=== PATIENT | male | born 1975 | race Caucasian/White ===

== ENCOUNTER 2018-03-31 12:41 | Emergency (ER) | payer SELFPAY ==
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
--- NOTE | 2018-03-31 14:18 | RAD REPORT ---
EXAM DESCRIPTION: RAD - Shoulder Left 2 View - 03/31/2018 2:06 pm CLINICAL HISTORY: Left shoulder pain FINDINGS: No fracture or dislocation is seen.
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
[2018-03-31 17:10] VITALS: TEMP 98.7
[2018-03-31 17:12] VITALS: BP 164/109; O2SAT 100
== END 2018-03-31 14:36 | disposition home or self-care (01) ==
LOC: ER 12:41
DX: S16.1XXA Strain of muscle, fascia and tendon at neck level, initial encounter (principal); S29.012A Strain of muscle and tendon of back wall of thorax, initial encounter; V49.50XA Passenger injured in collision with unspecified motor vehicles in traffic accident, initial encounter; F17.210 Nicotine dependence, cigarettes, uncomplicated
CPT/HCPCS: 72040; 72070; 99284

== ENCOUNTER 2018-07-01 08:05 | Emergency (ER) | payer SELFPAY ==
[2018-07-01 08:55] LABS: Protime INR 1.02
[2018-07-01 09:02] LABS: Absolute Lymphocytes (CBC) 1.3 K/uL (0.7-4.9); Absolute Monocytes 0.7 K/uL (0.1-1.3); Absolute Neutrophil 6.2 K/uL (1.8-8.0); Basophils % 0.7 % (0-1.3); Eosinophils % 0.9 % (0-4.4); Hematocrit 53.9 % (39.6-49.0); Lymphocytes % 15.7 % (15.3-44.8); MPV 9.6 fL (7.6-11.3); Monocytes % 8.1 % (3.3-12.3); RBC Red Blood Cell Count 5.96 M/uL (4.33-5.43)
[2018-07-01] MEDS ORDERED: KETOROLAC 30 MG/ML INJ ONE (09:06)
--- NOTE | 2018-07-01 09:09 | RAD REPORT ---
EXAM DESCRIPTION: Carl Single View07/01/2018 8:59 am CLINICAL HISTORY: Chest pain COMPARISON: 2014 FINDINGS: The lungs are hyperaerated. The lungs appear clear of acute infiltrate. The heart is trung l size IMPRESSION: No acute abnormalities displayed
[2018-07-01 09:10] LABS: ALT/SGPT 21 U/L (12-78); AST/SGOT 18 U/L (15-37); Albumin 3.7 g/dL (3.4-5.0); Alkaline Phosphatase 68 U/L (45-117); BUN Blood Urea Nitrogen 13 mg/dL (7-18); Bicarbonate 25 mmol/L (21-32); Bilirubin Direct 0.2 mg/dL (0-0.2); Bilirubin Total 0.7 mg/dL (0.2-1.0); Glucose Level 100 mg/dL (74-106); Magnesium 1.9 mg/dL (1.8-2.4); NT PRO-BNP 60 pg/mL (<125); Protein, Total 7.4 g/dL (6.4-8.2); Sodium Level 140 mmol/L (136-145); Troponin (Emerg Dept Use Only) < 0.02 ng/mL (0.0-0.045)
--- NOTE | 2018-07-01 10:42 | EKG ---
Test Date: 2018-07-01 Test Time: 08:21:52 Friction Saw Operator: SHARAN MEASUREMENT RESULTS: Intervals: Rate: 59 MA: 124 QRSD: 94 QT: 388 QTc: 384 Layton: P: 49 MA: 124 QRS: 78 T: 77 INTERPRETIVE STATEMENTS: Sinus bradycardia Otherwise normal ECG Compared to ECG 10/04/2014 07:36:08 Sinus rhythm no longer present Sinus arrhythmia no longer present Electronically Signed On 07-01-18 10:41:30 CDT by Mo Fine
[2018-07-01] MEDS ORDERED: HYDROCODONE/APAP 7.5/325 MG TAB ONE (11:57)
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
--- NOTE | 2018-07-01 13:04 | EDPHYS ---
Physician Documentation [facility] Name: Wilver Barton Age: 43 yrs Sex: Male : 1975 Arrival Date: 07/01/2018 Time: 08:06 Bed 6 Private MD: None, None ED Physician Tigre Russ HPI: 07/01 09:21 This 43 yrs old Male presents to ER via Ambulatory with complaints of Chest kdr Pain, Breathing Difficulty. 09:21 The patient or guardian reports chest pain that is located primarily in the anterior kdr chest wall, left, chest diffusely. Onset: suddenly, 2 day(s) ago. The pain does not radiate. Associated signs and symptoms: Pertinent positives: nausea, shortness of breath, Pertinent negatives: abdominal pain, cough, diaphoresis, dizziness, headache, lower extremity pain, lower extremity swelling, lightheadedness, near syncope, palpitations, recent travel, syncope, vomiting. The chest pain is described as aching, a pressure, sharp. Duration: The patient or guardian reports multiple episodes, that are intermittent, that wax and wane, with no pattern. Modifying factors: The symptoms are alleviated by nothing. the symptoms are aggravated by breathing, cough, deep breath, movement, palpation of area. Severity of pain: At its worst the pain was mild just prior to arrival, in the emergency department the pain is unchanged. The patient has experienced similar episodes in the past, Yearly for the past six to eight years it has been frequent. The patient has not recently seen a physician. Historical: - Allergies: 08:36 PENICILLINS; hb - Home Meds: 08:36 "i dont take medicine for it" [Active]; hb - PMHx: 08:36 heart problem; Hypertension; hb - PSHx: 08:36 ear surgery; hb - Immunization history:: Adult Immunizations up to date. - Social history:: Smoking status: Patient/guardian denies using tobacco. - Ebola Screening: : No symptoms or risks identified at this time. ROS: 09:21 Constitutional: Negative for fever, chills, and weight loss, Eyes: Negative for injury, kdr pain, redness, and discharge, ENT: Negative for injury, pain, and discharge, Neck: Negative for injury, pain, and swelling, Respiratory: Negative for shortness of breath, cough, wheezing, and pleuritic chest pain, Abdomen/GI: Negative for abdominal pain, nausea, vomiting, diarrhea, and constipation, Back: Negative for injury and pain, : Negative for injury, bleeding, discharge, and swelling, MS/Extremity: Negative for injury and deformity, Skin: Negative for injury, rash, and discoloration, Neuro: Negative for headache, weakness, numbness, tingling, and seizure activity. Psych: Negative for depression, anxiety, suicide ideation, homicidal ideation, and hallucinations, Allergy/Immunology: Negative for hives, rash, and allergies, Endocrine: Negative for neck swelling, polydipsia, polyuria, polyphagia, and marked weight changes, Hematologic/Lymphatic: Negative for swollen nodes, abnormal bleeding, and unusual bruising. 09:21 Cardiovascular: Positive for chest pain, with cough, with movement, Negative for edema, orthopnea, palpitations, paroxysmal nocturnal dyspnea. Exam: 09:21 Constitutional: This is a well developed, well nourished patient who is awake, alert, kdr and in no acute distress. Head/Face: Normocephalic, atraumatic. Eyes: Pupils equal round and reactive to light, extra-ocular motions intact. Lids and lashes normal. Conjunctiva and sclera are non-icteric and not injected. Cornea within normal limits. Periorbital areas with no swelling, redness, or edema. Neck: Trachea midline, no thyromegaly or masses palpated, and no cervical lymphadenopathy. Supple, full range of motion without nuchal rigidity, or vertebral point tenderness. No Meningismus. Chest/axilla: Normal chest wall appearance and motion. Nontender with no deformity. No lesions are appreciated. Cardiovascular: Regular rate and rhythm with a normal S1 and S2. No gallops, murmurs, or rubs. Normal PMI, no JVD. No pulse deficits. Respiratory: Lungs have equal breath sounds bilaterally, clear to auscultation and percussion. No rales, rhonchi or wheezes noted. No increased work of breathing, no retractions or nasal flaring. Abdomen/GI: Soft, non-tender, with normal bowel sounds. No distension or tympany. No guarding or rebound. No evidence of tenderness throughout. Back: No spinal tenderness. No costovertebral tenderness. Full range of motion. Skin: Warm, dry with normal turgor. Normal color with no rashes, no lesions, and no evidence of cellulitis. MS/ Extremity: Pulses equal, no cyanosis. Neurovascular intact. Full, normal range of motion. Neuro: Awake and alert, GCS 15, oriented to person, place, time, and situation. Cranial nerves II-XII grossly intact. Motor strength 5/5 in all extremities. Sensory grossly intact. Cerebellar exam normal. Normal gait. Psych: Awake, alert, with orientation to person, place and time. Behavior, mood, and affect are within normal limits. Vital Signs: 08:30 BP 149 / 101; Pulse 66; Resp 15; Temp 98.2; Pulse Ox 100% on R/A; Pain 7/10; hb 09:30 BP 148 / 105; Pulse 55; Resp 15; Pulse Ox 99% on R/A; Pain 3/10; hb 10:30 BP 142 / 88; Pulse 56; Resp 15; Pulse Ox 100% on R/A; hb 11:30 BP 136 / 86; Pulse 58; Resp 16; Pulse Ox 99% ; hb 12:30 BP 140 / 80; Pulse 55; Resp 15; Pulse Ox 98% on R/A; hb 13:30 BP 146 / 84; Pulse 57; Resp 15; Pulse Ox 99% on R/A; hb MDM: 09:21 Data reviewed: vital signs, nurses notes, lab test result(s), radiologic studies. kdr Counseling: I had a detailed discussion with the patient and/or guardian regarding: the historical points, exam findings, and any diagnostic results supporting the discharge/admit diagnosis, lab results, radiology results. 11:22 ED course: The patient was feeling better and refused and further pain medication or kdr intervention. Explained that we would get second troponin.. 13:02 Patient medically screened. kdr 07/01 08:21 Order name: Basic Metabolic Panel; Complete Time: : kdr 07/01 08:21 Order name: CBC with Diff; Complete Time: kdr 07/01 08:21 Order name: LFT's; Complete Time: : kdr 07/01 08:21 Order name: Magnesium; Complete Time: : kdr 07/01 08:21 Order name: NT PRO-BNP; Complete Time: : kdr 07/01 08:21 Order name: PT-INR; Complete Time: : kdr 07/01 08:21 Order name: Troponin (emerg Dept Use Only); Complete Time: 09:26 kdr 07/01 08:21 Order name: XRAY Chest (1 view); Complete Time: 09: kdr 07/01 08:21 Order name: EKG; Complete Time: 08:22 kdr 07/01 08:21 Order name: ETOH Level; Complete Time: 09: kdr 07/01 10:29 Order name: Troponin (emerg Dept Use Only); Complete Time: 12:14 kdr 07/01 08:21 Order name: Cardiac monitoring; Complete Time: 08:43 kdr 07/01 08:21 Order name: EKG - Nurse/Tech; Complete Time: 08:43 kdr 07/01 08:21 Order name: IV Saline Lock; Complete Time: : kdr 07/01 08:21 Order name: Labs collected and sent; Complete Time: 08: kdr 07/01 08:21 Order name: O2 Per Protocol; Complete Time: 08: kdr 07/01 08:21 Order name: O2 Sat Monitoring; Complete Time: 08:43 kdr Administered Medications: 09:01 Drug: TORadol - Ketorolac 15 mg Route: IVP; Site: right antecubital; hb 09:55 Follow up: Response: No adverse reaction; Pain is decreased hb 11:56 Drug: [place] (7.5 mg-325 mg) 1 tabs Route: PO; hb Disposition: 07/01/18 13:02 Discharged to Home. Impression: Chest pain, unspecified, Chest pain on breathing. - Condition is Stable. - Discharge Instructions: Chest Wall Pain, Tegt-[id number], Nonspecific Chest Pain, [id number]-[id number]. - Prescriptions for Ibuprofen 600 mg Oral Tablet - take 1 tablet by ORAL route every 6 hours As needed take with food; 30 tablet. Tylenol- Codeine #3 300-30 mg Oral Tablet - take 2 tablets by ORAL route every 6 hours As needed; 12 tablet. Tramadol 50 mg Oral Tablet - take 1 tablet by ORAL route every 8 hours as needed; 12 tablet. - Medication Reconciliation Form, Thank You Letter, Prescription Opioid Use, Work release form form. - Follow up: Private Physician; When: 2 - 3 days; Reason: If symptoms return, Further diagnostic work-up, Recheck today's complaints, Continuance of care, Re-evaluation by your physician. - Problem is an acute exacerbation. - Symptoms have improved. Signatures: Dispatcher [employer] EDMS Tigre Russ MD MD kdr Amy Hemphill RN RN hb Corrections: (The following items were deleted from the chart) 13:45 13:02 07/01/2018 13:02 Discharged to Home. Impression: Chest pain, unspecified; Chest hb pain on breathing. Condition is Stable. Forms are Medication Reconciliation Form, Thank You Letter, Antibiotic Education, Prescription Opioid Use. Follow up: Private Physician; When: 2 - 3 days; Reason: If symptoms return, Further diagnostic work-up, Recheck today's complaints, Continuance of care, Re-evaluation by your physician. Problem is an acute exacerbation. Symptoms have improved. kdr
[2018-07-01 13:49] VITALS: TEMP 98.2
[2018-07-01 13:55] VITALS: BP 146/84; O2SAT 99
== END 2018-07-01 13:45 | disposition home or self-care (01) ==
LOC: ER 08:05
DX: R07.9 Chest pain, unspecified (principal); R07.1 Chest pain on breathing; I10 Essential (primary) hypertension; Z88.0 Allergy status to penicillin
CPT/HCPCS: 36415; 71045; 80048; 80076; 80320; 83735; 83880; 84484; 85025; 85610; 93005; 96374; 99285

== ENCOUNTER 2021-10-28 22:20 | Emergency (ER) | payer SELFPAY ==
[2021-10-28] MEDS ORDERED: MORPHINE 4 MG/ML SYR ONE (23:18)
[2021-10-28] MEDS ORDERED: ONDANSETRON 4 MG/2 ML VIAL ONE (23:18)
[2021-10-28] MEDS ORDERED: NA CHLORIDE 0.9% 1,000 ML ONE (23:18)
[2021-10-28 23:24] LABS: Urine Blood Negative (Negative); Urine Glucose Negative (Negative); Urine Protein Negative (Negative)
[2021-10-28 23:24] LABS: Absolute Lymphocytes (CBC) 2.5 K/uL (0.7-4.9); Hematocrit 44.2 % (39.6-49.0); Lymphocytes % 37.3 % (15.3-44.8); MCV 88.9 fL (80-100); RBC Red Blood Cell Count 4.98 M/uL (4.33-5.43)
[2021-10-28 23:35] LABS: Albumin 3.4 g/dL (3.4-5.0); Bilirubin Total 0.3 mg/dL (0.2-1.0); Potassium 3.7 mmol/L (3.5-5.1); Protein, Total 7.3 g/dL (6.4-8.2)
--- NOTE | 2021-10-29 03:00 | EDPHYS ---
Physician Documentation [facility] Name: Wilver Barton Age: 46 yrs Sex: Male : 1975 Arrival Date: 10/28/2021 Time: 22:24 Bed 7 Private MD: ED Physician Brad Moreno HPI: 10/28 23:15 This 46 yrs old Male presents to ER via Ambulatory with complaints of Flank Pain. mh7 23:15 The patient complains of pain in the right flank. The pain does not radiate. Onset: The mh7 symptoms/episode began/occurred 10 day(s) ago. Modifying factors: The symptoms are alleviated by nothing. the symptoms are aggravated by movement, palpation/percussion. Associated signs and symptoms: Pertinent negatives: diarrhea, dizziness, dysuria, fever, urinary frequency, headache, hematuria, nausea, pain radiating to the lower extremities, vomiting. Severity of pain: At its worst the pain was moderate 3 day(s) ago, in the emergency department the pain is unchanged. Historical: - Allergies: 22:41 PENICILLINS; bb - Home Meds: 22:41 None [Active]; bb - PMHx: 22:41 Polycystic Kidney Disease; heart problem; Hypertension; bb - PSHx: 22:41 cyst removal from ear; bb - Immunization history:: Client reports having NOT received the Covid vaccine. - Social history:: Smoking status: Patient reports the use of cigarette tobacco products. ROS: 23:15 Constitutional: Negative for fever, chills, and weight loss, Eyes: Negative for injury, mh7 pain, redness, and discharge, ENT: Negative for injury, pain, and discharge, Neck: Negative for injury, pain, and swelling, Cardiovascular: Negative for chest pain, palpitations, and edema, Respiratory: Negative for shortness of breath, cough, wheezing, and pleuritic chest pain, Abdomen/GI: Negative for abdominal pain, nausea, vomiting, diarrhea, and constipation, : Negative for injury, bleeding, discharge, and swelling, MS/Extremity: Negative for injury and deformity, Skin: Negative for injury, rash, and discoloration, Neuro: Negative for headache, weakness, numbness, tingling, and seizure, Psych: Negative for depression, anxiety, suicide ideation, homicidal ideation, and hallucinations, Allergy/Immunology: Negative for hives, rash, and allergies, Endocrine: Negative for neck swelling, polydipsia, polyuria, polyphagia, and marked weight changes, Hematologic/Lymphatic: Negative for swollen nodes, abnormal bleeding, and unusual bruising. Exam: 23:15 Head/Face: Normocephalic, atraumatic. Eyes: Pupils equal round and reactive to light, mh7 extra-ocular motions intact. Lids and lashes normal. Conjunctiva and sclera are non-icteric and not injected. Cornea within normal limits. Periorbital areas with no swelling, redness, or edema. Neck: Trachea midline, no thyromegaly or masses palpated, and no cervical lymphadenopathy. Supple, full range of motion without nuchal rigidity, or vertebral point tenderness. No Meningismus. Chest/axilla: Normal chest wall appearance and motion. Nontender with no deformity. No lesions are appreciated. Cardiovascular: Regular rate and rhythm with a normal S1 and S2. No gallops, murmurs, or rubs. Normal PMI, no JVD. No pulse deficits. Respiratory: Lungs have equal breath sounds bilaterally, clear to auscultation and percussion. No rales, rhonchi or wheezes noted. No increased work of breathing, no retractions or nasal flaring. 23:15 Skin: Warm, dry with normal turgor. Normal color with no rashes, no lesions, and no evidence of cellulitis. MS/ Extremity: Pulses equal, no cyanosis. Neurovascular intact. Full, normal range of motion. Neuro: Awake and alert, GCS 15, oriented to person, place, time, and situation. Cranial nerves II-XII grossly intact. Motor strength 5/5 in all extremities. Sensory grossly intact. Cerebellar exam normal. Normal gait. Psych: Awake, alert, with orientation to person, place and time. Behavior, mood, and affect are within normal limits. 23:15 Constitutional: The patient appears in no acute distress, alert, awake, uncomfortable. 23:15 Back: normal spinal alignment noted, CVA tenderness, that is moderate, is noted on the right, vertebral tenderness, is not appreciated, muscle spasm, is not present. 23:15 Abdomen/GI: Soft, non-tender, with normal bowel sounds. No distension or tympany. No mh7 guarding or rebound. No evidence of tenderness throughout. Vital Signs: 22:39 BP 140 / 91; Pulse 57; Resp 16 S; Temp 98.4(TE); Pulse Ox 97% on R/A; Weight 70.31 kg bb (R); Height 6 ft. 0 in. (182.88 cm) (R); Pain 10/10; 10/29 00:24 BP 133 / 88; Pulse 44; Resp 18; Pulse Ox 97% on R/A; ll3 01:41 BP 119 / 86; Pulse 44; Resp 17; Pulse Ox 97% on R/A; ll3 03:04 BP 115 / 85; Pulse 85; Resp 20; Pulse Ox 97% on R/A; kl 10/28 22:39 Body Mass Index 21.02 (70.31 kg, 182.88 cm) bb MDM: 02:56 Differential diagnosis: nephrolithiasis, pyelonephritis, UTI, diverticulitis. Data [facility] reviewed: vital signs, nurses notes, old medical records, lab test result(s), CBC, electrolytes, urinalysis, radiologic studies, CT scan. Data interpreted: Pulse oximetry: on room air is 97 %. Interpretation: normal. Counseling: I had a detailed discussion with the patient and/or guardian regarding: the historical points, exam findings, and any diagnostic results supporting the discharge/admit diagnosis, lab results, radiology results, the need for outpatient follow up, a urologist, to return to the emergency department if symptoms worsen or persist or if there are any questions or concerns that arise at home. Response to treatment: the patient's symptoms have resolved after treatment, the patient's blood pressure is in an acceptable range, mental status has returned to baseline, the patient no longer shows bradycardia, the patient is not short of breath, the patient is not tachycardic, the patient's pain is gone, the patient's temperature has normalized, the patient is now symptom free, patient is well hydrated. 02:59 Patient medically screened. [facility] 10/28 23:17 Order name: Comprehensive Metabolic Panel; Complete Time: 23:46 EDNY 10/28 23:17 Order name: Lipase; Complete Time: 23:46 [facility] 10/28 23:17 Order name: CBC with Automated Diff; Complete Time: 23:35 [facility]NY 10/28 23:03 Order name: IV Saline Lock; Complete Time: 23:11 [facility] 10/28 23:03 Order name: Labs collected and sent; Complete Time: 23:11 [facility] 10/28 23:03 Order name: Urine Dipstick-Ancillary (obtain specimen); Complete Time: 23:58 [facility] 10/28 23:24 Order name: CT Stone Protocol [facility] 10/28 23:24 Order name: Urine Dipstick-Ancillary; Complete Time: 23:24 EDMS Administered Medications: 10/28 23:14 Drug: Zofran (Ondansetron) 4 mg Route: IVP; Site: right antecubital; 10/29 02:08 Follow up: Response: No adverse reaction [facility] 10/28 23:14 Drug: morphine 4 mg Route: IVP; Infused Over: 4 mins; Site: right antecubital; 10/29 02:05 Follow up: Response: No adverse reaction [facility] 10/28 23:33 Drug: NS 0.9% 1000 ml Route: IV; Rate: 1 bolus; Site: right antecubital; [facility] 10/29 02:05 Follow up: Response: No adverse reaction; IV Status: Completed infusion; IV Intake: ll3 1000ml Disposition Summary: 10/29/21 02:59 Discharge Ordered Location: Home [facility] Problem: new [facility] Symptoms: have improved [facility] Condition: Stable [facility] Diagnosis - Polycystic kidney, unspecified [facility] - Unspecified renal colic [facility] Followup: [facility] - With: Private Physician - When: 1 - 2 days - Reason: Worsening of condition, Recheck today's complaints, Continuance of care, Re-evaluation by your physician Followup: [facility] - With: Sea Emerson MD - When: 1 - 2 days - Reason: Worsening of condition, Recheck today's complaints Discharge Instructions: - Discharge Summary Sheet [facility] - Renal Colic, [id number] [facility] - Kidney Stones, [id number] [facility] - Polycystic Kidney Disease, Adult [facility] Forms: - Medication Reconciliation Form [facility] - Thank You Letter [facility] - Antibiotic Education [facility] - Prescription Opioid Use [facility] Prescriptions: - Tramadol 50 mg Oral Tablet - take 1 tablet by ORAL route every 8 hours as needed; 12 tablet; Refills: 0, mh7 Product Selection Permitted Signatures: [facility] EDKelly Del Toro RN RN kl Ballard, Brenda, RN RN bb Holmes, Maurice, MD MD mh7 Azeem Mendoza RN RN ll3 Corrections: (The following items were deleted from the chart) 10/28 23:23 23:16 CBC+H.LAB.BRZ ordered. EDMS EDMS : 23:16 COMPREHENSIVE METABOLIC PANEL+C.LAB.BRZ ordered. EDMS EDMS : 23:16 LIPASE+C.LAB.BRZ ordered. EDMS EDMS
--- NOTE | 2021-10-29 03:00 | ER ---
Nurse's Notes [facility] Name: Wilver Barton Age: 46 yrs Sex: Male : 1975 Arrival Date: 10/28/2021 Time: 22:24 Bed 7 Private MD: Diagnosis: Polycystic kidney, unspecified;Unspecified renal colic Presentation: 10/28 22:39 Chief complaint: Patient states: he has polycystic kidney disease and he has been bb having right flank pain for about a week and a half which is getting more painful. Coronavirus screen: At this time, the client does not indicate any symptoms associated with coronavirus-19. Ebola Screen: No symptoms or risks identified at this time. Initial Sepsis Screen: Does the patient meet any 2 criteria? No. Patient's initial sepsis screen is negative. Does the patient have a suspected source of infection? No. Patient's initial sepsis screen is negative. Risk Assessment: Do you want to hurt yourself or someone else? Patient reports no desire to harm self or others. Onset of symptoms was October 19, 2021. 22:39 Method Of Arrival: Ambulatory bb 22:39 Acuity: JEFERSON 3 bb Triage Assessment: 10/29 03:15 General: Appears uncomfortable, Behavior is calm, cooperative. kl 03:15 Pain: kl Historical: - Allergies: 10/28 22:41 PENICILLINS; bb - Home Meds: 22:41 None [Active]; bb - PMHx: 22:41 Polycystic Kidney Disease; heart problem; Hypertension; bb - PSHx: 22:41 cyst removal from ear; bb - Immunization history:: Client reports having NOT received the Covid vaccine. - Social history:: Smoking status: Patient reports the use of cigarette tobacco products. Screenin/08 03:14 Abuse screen: Denies threats or abuse. Nutritional screening: No deficits noted. kl Tuberculosis screening: No symptoms or risk factors identified. Fall Risk None identified. Assessment: 00:24 Reassessment: No changes from previously documented assessment. Patient and/or family ll3 updated on plan of care and expected duration. Pain level reassessed. Patient is alert, oriented x 3, equal unlabored respirations, skin warm/dry/pink. 01:40 Reassessment: No changes from previously documented assessment. Patient and/or family ll3 updated on plan of care and expected duration. Pain level reassessed. Patient is alert, oriented x 3, equal unlabored respirations, skin warm/dry/pink. Vital Signs: 10/28 22:39 BP 140 / 91; Pulse 57; Resp 16 S; Temp 98.4(TE); Pulse Ox 97% on R/A; Weight 70.31 kg bb (R); Height 6 ft. 0 in. (182.88 cm) (R); Pain 10/10; 10/29 00:24 BP 133 / 88; Pulse 44; Resp 18; Pulse Ox 97% on R/A; ll3 01:41 BP 119 / 86; Pulse 44; Resp 17; Pulse Ox 97% on R/A; ll3 03:04 BP 115 / 85; Pulse 85; Resp 20; Pulse Ox 97% on R/A; kl 10/28 22:39 Body Mass Index 21.02 (70.31 kg, 182.88 cm) ED Course: 10/28 22:24 Patient arrived in ED. as 22:41 Triage completed. bb 22:41 Arm band placed on Patient placed in an exam room, on a stretcher, on pulse oximetry. bb Family accompanied patient. 22:48 Brad Moreno MD is Attending Physician. [facility] 23:11 Initial lab(s) drawn, by me, sent to lab. Inserted saline lock: 22 gauge in right ll3 antecubital area, using aseptic technique. Blood collected. 23:33 Azeem Mendoza, JOSEY is Primary Nurse. [facility] 10/29 01:03 CT Stone Protocol In Process Unspecified. EDMS 02:58 Sea Emerson MD is Referral Physician. [facility] 03:14 No provider procedures requiring assistance completed. IV discontinued, intact, kl bleeding controlled, No redness/swelling at site. Pressure dressing applied. 03:15 Patient has correct armband on for positive identification. Placed in gown. kl Administered Medications: 10/28 23:14 Drug: Zofran (Ondansetron) 4 mg Route: IVP; Site: right antecubital; 10/29 02:08 Follow up: Response: No adverse reaction [facility] 10/28 23:14 Drug: morphine 4 mg Route: IVP; Infused Over: 4 mins; Site: right antecubital; 10/29 02:05 Follow up: Response: No adverse reaction [facility] 10/28 23:33 Drug: NS 0.9% 1000 ml Route: IV; Rate: 1 bolus; Site: right antecubital; 3 10/29 02:05 Follow up: Response: No adverse reaction; IV Status: Completed infusion; IV Intake: ll3 1000ml Medication: 03:15 VIS not applicable for this client. kl Intake: 02:05 IV: 1000ml; Total: 1000ml. 3 Outcome: 02:59 Discharge ordered by MD. ames 03:15 Discharged to home ambulatory. 03:15 Condition: improved 03:15 Discharge instructions given to patient, Instructed on discharge instructions, follow up and referral plans. medication usage, Demonstrated understanding of instructions, follow-up care, medications, Prescriptions given X 1. 03:15 Patient left the ED. Signatures: Dispatcher [employer] EDKelly Del Toro RN RN kl Martinez, Amelia as Ballard, Brenda, RN RN bb Holmes, Maurice, MD MD Azeem Armas RN RN [facility]
[2021-10-29 03:22] VITALS: TEMP 98.4; O2SAT 97
[2021-10-29 03:29] VITALS: BP 115/85
--- NOTE | 2021-10-29 14:09 | RAD REPORT ---
EXAM DESCRIPTION: CT - Stone Protocol - 10/29/2021 6:51 am CLINICAL HISTORY: Flank pain, kidney stone suspected COMPARISON: None. TECHNIQUE: CT ABDOMEN PELVIS WITHOUT IV CONTRAST on 10/28/2021 11:24 PM CDT This exam was performed according to our departmental dose-optimization program, which includes autom ated exposure control, adjustment of the mA and/or kV according to patient size and/or use of iterati ve reconstruction technique. FINDINGS: Lower lungs are clear. Abdomen: Liver contains multiple small cysts. There is no biliary dilatation. The pancreas and spleen are normal in appearance. Adrenal glands are normal. Kidneys are replaced with innumerable cysts of varying sizes and densities. There are multiple calcifications within both kidneys. There is no overt hydronephrosis. Abdominal aorta is normal in course and caliber without aneurysm. There is no free air. There is no r etroperitoneal adenopathy. Pelvis: There is no bowel obstruction. Urinary bladder is unremarkable. There is no free fluid. Appen chetan is normal. Skeleton: There are no acute osseous findings. No suspicious bony lesions. IMPRESSION: Extensive sequela of bilateral polycystic renal disease with multiple renal calculi but no hydronephrosis. Hepatic cysts. Electronically signed by: Haris Mckeon MD 10/29/2021 1:58 AM CDT Due to temporary technical issues with the PACS/Fluency reporting system, reports are being signed by the in house radiologists without review as a courtesy to insure prompt reporting. The interpreting radiologist is fully responsible for the content of the report.
== END 2021-10-29 03:15 | disposition home or self-care (01) ==
LOC: ER 22:20
DX: N23 Unspecified renal colic (principal); Q61.3 Polycystic kidney, unspecified; F17.210 Nicotine dependence, cigarettes, uncomplicated; I10 Essential (primary) hypertension; Z88.0 Allergy status to penicillin
CPT/HCPCS: 36415; 74176; 76377; 80053; 81003; 83690; 85025; 96361; 96374; 96375; 99284; J2405; J7030

== ENCOUNTER 2022-12-25 10:11 | Emergency (ER) | payer SELFPAY ==
[2022-12-25] MEDS ORDERED: IBUPROFEN 200 MG TAB PO ONE (10:40)
[2022-12-25] MEDS ORDERED: IBUPROFEN 400 MG TAB ONE (10:40)
[2022-12-25] MEDS ORDERED: HYDROCODONE/APAP 10/325 TAB ONE (10:41)
--- NOTE | 2022-12-25 10:55 | RAD REPORT ---
EXAM DESCRIPTION: RAD - Foot Right 3 View - 12/25/2022 10:49 am CLINICAL HISTORY: PAIN COMPARISON: No comparisons FINDINGS: Mild soft tissue swelling is seen medially. No fracture or dislocation.
--- NOTE | 2022-12-25 10:55 | RAD REPORT ---
EXAM DESCRIPTION: RAD - Ankle Right 3 View - 12/25/2022 10:49 am CLINICAL HISTORY: PAIN COMPARISON: Foot Right 3 View dated 12/25/2022 FINDINGS: No acute fracture or dislocation is seen. Sclerotic lesion is noted along the lateral dist al tibial subcortical region. While this is nonspecific, it is favored to be benign. Recommend follow -up radiographs in 3-6 months to demonstrate stability over time.
[2022-12-25] MEDS ORDERED: AMLODIPINE 10 MG TAB ONE (11:22)
[2022-12-25 11:35] LABS: Absolute Lymphocytes (CBC) 1.8 K/uL (0.7-4.9); Hematocrit 55.1 % (39.6-49.0); Lymphocytes % 17.9 % (15.3-44.8); MCV 91.4 fL (80-100); MPV 8.8 fL (7.6-11.3); Platelets 162 thou/uL (152-406); RBC Red Blood Cell Count 6.03 M/uL (4.33-5.43)
[2022-12-25 11:46] LABS: Specific Gravity 1.011 (1.005-1.030); Urine Bacteria None Seen /HPF (<20); Urine Bilirubin NEGATIVE (Negative); Urine Blood Trace (Negative); Urine Clarity Clear (Clear); Urine Color Light-Yellow (Yellow); Urine Glucose TRACE (Negative); Urine Mucus Slight /HPF (None Seen); Urine Protein 3+ (Negative); Urine RBC <5 /HPF (None Seen); Urine Urobilinogen Normal (Normal)
[2022-12-25 11:56] LABS: Albumin 3.2 g/dL (3.4-5.0); Bilirubin Total 0.6 mg/dL (0.2-1.0); Potassium 3.9 mEq/L (3.5-5.1); Protein, Total 6.6 g/dL (6.4-8.2)
--- NOTE | 2022-12-25 12:15 | ER ---
Nurse's Notes [facility] Name: Wilver Barton Age: 47 yrs Sex: Male : 1975 Arrival Date: 12/25/2022 Time: 10:11 Bed 4 Private MD: Diagnosis: Essential (primary) hypertension;Sprain of tibiofibular ligament of right ankle;Sprain of calcaneofibular ligament of right ankle;Abnormal findings on diagnostic imaging of other specified body structures-SCLEROTIC LESION DISTAL TIBIAL SUBCORTICAL REGION, NEEDS FOLLOW UP RADIOGRAPHS IN 3-6 MONTHS TO SHOW STABILITY;Polycystic kidney, adult type;Unspecified kidney failure;Alcohol use, unspecified;Tobacco abuse counseling;Tobacco use Presentation: 12/25 10:24 Onset of symptoms was December 24, 2022. aa5 10:24 Chief complaint: Chief complaint: Patient states: "I stomped on a chicken snake trying aa5 to eat my chicken eggs and I heard a loud pop on my right ankle/foot, the snake bit me on my left leg but it was just a chicken snake". Pt c/o right ankle pain/right foot. 10:24 Method Of Arrival: Ambulatory aa5 10:24 Coronavirus screen: At this time, the client does not indicate any symptoms associated aa5 with coronavirus-19. Ebola Screen: Patient denies travel to an Ebola-affected area in the 21 days before illness onset. Initial Sepsis Screen: Does the patient meet any 2 criteria? No. Patient's initial sepsis screen is negative. Does the patient have a suspected source of infection? No. Patient's initial sepsis screen is negative. Risk Assessment: Do you want to hurt yourself or someone else? Patient reports no desire to harm self or others. 10:24 Acuity: JEFERSON 3 aa5 Triage Assessment: 12:28 Bite description: animal information: vaccination(s) is unknown. ld1 12:36 Bite description: bite sustained to right leg by a snake. General: Appears in no db apparent distress. comfortable, Behavior is calm, cooperative. Historical: - Allergies: 10:36 PENICILLINS; aa5 - Home Meds: 10:36 None [Active]; aa5 - PMHx: 10:36 Hypertension; POLYCYSTIC KIDNEY DISEASE; alcohol abuse (cyst removal from ear); aa5 - PSHx: 10:36 cyst removal from ear; aa5 - Immunization history:: Adult Immunizations unknown. - Social history:: Smoking status: Patient reports the use of cigarette tobacco products, smokes one pack cigarettes per day. Screenin:13 [facility] ED Fall Risk Assessment (Adult) History of falling in the last 3 months, db including since admission No falls in past 3 months (0 pts) Score/Fall Risk Level 0 - 2 = Low Risk Oriented to surroundings, Maintained a safe environment. [facility] ED Fall Risk Assessment (Adult) Confusion or Disorientation No (0 pts) Intoxicated or Sedated No (0 pts) Impaired Gait Yes (1 pt) Mobility Assist Device Used Yes (1 pt) Altered Elimination No (0 pt). Abuse screen: Denies threats or abuse. Denies injuries from another. Nutritional screening: No deficits noted. Nutritional screening: No deficits noted. Tuberculosis screening: No symptoms or risk factors identified. Assessment: 10:30 Reassessment: Patient appears in no apparent distress at this time. Patient and/or db family updated on plan of care and expected duration. Pain level reassessed. Patient is alert, oriented x 3, equal unlabored respirations, skin warm/dry/pink. General: Appears in no apparent distress. comfortable, Behavior is calm, cooperative. Pain:. Neuro: Level of Consciousness is awake, alert, obeys commands, Oriented to person, place, time, situation. 10:30 Pain: Complains of pain in RIGHT ANKLE. db 11:39 Reassessment: Patient appears in no apparent distress at this time. Patient and/or db family updated on plan of care and expected duration. Pain level reassessed. Patient is alert, oriented x 3, equal unlabored respirations, skin warm/dry/pink. 12:36 Derm: Skin is intact, Skin is pink, warm \\T\\ dry. db Vital Signs: 10:24 BP 198 / 125; Pulse 88; Resp 18 S; Temp 98(TE); Pulse Ox 100% on R/A; Weight 63.5 kg aa5 (R); Height 6 ft. 0 in. (R); 10:33 Weight 63.5 kg; db 11:00 BP 170 / 106; Pulse 60; Resp 16; Pulse Ox 100% on R/A; db 12:27 BP 163 / 107; Pulse 51; Resp 18; Pulse Ox 100% on R/A; ld1 10:24 Body Mass Index 18.99 (63.50 kg, 182.88 cm) aa5 ED Course: 10:15 Patient arrived in ED. mg5 10:15 Wilver Perales MD is Attending Physician. pricilla 10:24 Arm band placed on. aa5 10:25 Danielle Cohen, RN is Primary Nurse. ld1 10:32 Triage completed. aa5 10:51 Foot Right 3 View XRAY In Process Unspecified. EDMS 10:51 Ankle Right 3 View XRAY In Process Unspecified. EDMS 11:13 Patient has correct armband on for positive identification. Bed in low position. Call db light in reach. Side rails up X 1. Pulse ox on. NIBP on. 11:25 Inserted saline lock: 20 gauge in right antecubital area, using aseptic technique. db Blood collected. 12:05 ORTHO BOOT. db 12:14 Maurilio Pizarro MD is Referral Physician. pricilla 12:14 To Hou MD is Referral Physician. pricilla 12:28 No provider procedures requiring assistance completed. Patient did not have IV access ld1 during this emergency room visit. 12:36 Provided Education on: DISCHARGE. db Administered Medications: 10:30 Drug: Ibuprofen PO 600 mg PO once Route: PO; db 12:35 Follow up: Response: No adverse reaction db 10:30 Drug: [place] PO 10 mg-325 mg 1 tabs PO once Route: PO; db 12:35 Follow up: Response: No adverse reaction db 11:10 Drug: Norvasc PO 10 mg PO once Route: PO; db 12:35 Follow up: Response: No adverse reaction db Medication: 12:28 VIS not applicable for this client. ld1 Outcome: 12:14 Discharge ordered by . pricilla 12:28 Discharged to home ambulatory, ld1 12:28 Condition: good 12:28 Discharge instructions given to patient, 12:37 Patient left the ED. db Signatures: Dispatcher [employer] EDWilver Park MD MD cha Calderon, Audri, RN RN aa5 Danielle Cohen, RN RN ld1 Latanya Szymanski, JOSEY RN db Vaishali Marrero mg5 Corrections: (The following items were deleted from the chart) 10:35 10:24 Chief complaint: aa5 aa5 10:36 10:24 Acuity: JEFERSON 4 aa5 aa5 10:37 10:36 PMHx: heart problem; aa5 aa5
--- NOTE | 2022-12-25 12:15 | EDPHYS ---
Physician Documentation [facility] Name: Wilver Barton Age: 47 yrs Sex: Male : 1975 Arrival Date: 12/25/2022 Time: 10:11 Bed 4 Private MD: ED Physician Wilver Perales HPI: 12/25 10:26 This 47 yrs old Male presents to ER via Unassigned with complaints of Snake pricilla bite, Foot Injury. Historical: - Allergies: 10:36 PENICILLINS; aa5 - Home Meds: 10:36 None [Active]; aa5 - PMHx: 10:36 Hypertension; POLYCYSTIC KIDNEY DISEASE; alcohol abuse (cyst removal from ear); aa5 - PSHx: 10:36 cyst removal from ear; aa5 - Immunization history:: Adult Immunizations unknown. - Social history:: Smoking status: Patient reports the use of cigarette tobacco products, smokes one pack cigarettes per day. ROS: 10:41 Constitutional: Negative for fever, chills, and weight loss, Eyes: Negative for injury, pricilla pain, redness, and discharge, ENT: Negative for injury, pain, and discharge, Neck: Negative for injury, pain, and swelling, Cardiovascular: Negative for chest pain, palpitations, and edema, Respiratory: Negative for shortness of breath, cough, wheezing, and pleuritic chest pain, Abdomen/GI: Negative for abdominal pain, nausea, vomiting, diarrhea, and constipation, Back: Negative for injury and pain, : Negative for injury, bleeding, discharge, and swelling, Skin: Negative for injury, rash, and discoloration, Neuro: Negative for headache, weakness, numbness, tingling, and seizure, Psych: Negative for depression, anxiety, suicide ideation, homicidal ideation, and hallucinations, Allergy/Immunology: Negative for hives, rash, and allergies, Endocrine: Negative for neck swelling, polydipsia, polyuria, polyphagia, and marked weight changes, Hematologic/Lymphatic: Negative for swollen nodes, abnormal bleeding, and unusual bruising, 10:41 MS/extremity: Positive for Exam: 10:52 Constitutional: This is a well developed, well nourished patient who is awake, alert, pricilla and in no acute distress. Head/Face: Normocephalic, atraumatic. Eyes: Pupils equal round and reactive to light, extra-ocular motions intact. Lids and lashes normal. Conjunctiva and sclera are non-icteric and not injected. Cornea within normal limits. Periorbital areas with no swelling, redness, or edema. ENT: Nares patent. No nasal discharge, no septal abnormalities noted. Tympanic membranes are normal and external auditory canals are clear. Oropharynx with no redness, swelling, or masses, exudates, or evidence of obstruction, uvula midline. Mucous membranes moist. Neck: Trachea midline, no thyromegaly or masses palpated, and no cervical lymphadenopathy. Supple, full range of motion without nuchal rigidity, or vertebral point tenderness. No Meningismus. Chest/axilla: Normal chest wall appearance and motion. Nontender with no deformity. No lesions are appreciated. Cardiovascular: Regular rate and rhythm with a normal S1 and S2. No gallops, murmurs, or rubs. Normal PMI, no JVD. No pulse deficits. Respiratory: Lungs have equal breath sounds bilaterally, clear to auscultation and percussion. No rales, rhonchi or wheezes noted. No increased work of breathing, no retractions or nasal flaring. Abdomen/GI: Soft, non-tender, with normal bowel sounds. No distension or tympany. No guarding or rebound. No evidence of tenderness throughout. Back: No spinal tenderness. No costovertebral tenderness. Full range of motion. Male : Normal genitalia with no discharge or lesions. Skin: Warm, dry with normal turgor. Normal color with no rashes, no lesions, and no evidence of cellulitis. Neuro: Awake and alert, GCS 15, oriented to person, place, time, and situation. Cranial nerves II-XII grossly intact. Motor strength 5/5 in all extremities. Sensory grossly intact. Cerebellar exam normal. Normal gait. Psych: Awake, alert, with orientation to person, place and time. Behavior, mood, and affect are within normal limits. Vital Signs: 10:24 BP 198 / 125; Pulse 88; Resp 18 S; Temp 98(TE); Pulse Ox 100% on R/A; Weight 63.5 kg aa5 (R); Height 6 ft. 0 in. (R); 10:33 Weight 63.5 kg; db 11:00 BP 170 / 106; Pulse 60; Resp 16; Pulse Ox 100% on R/A; db 12:27 BP 163 / 107; Pulse 51; Resp 18; Pulse Ox 100% on R/A; ld1 10:24 Body Mass Index 18.99 (63.50 kg, 182.88 cm) aa5 MDM: 10:15 Patient medically screened. [facility] 10:54 Data reviewed: vital signs, nurses notes, lab test result(s), EKG, radiologic studies, pricilla CT scan. 12/25 11:02 Order name: CBC with Diff; Complete Time: 11:50 [facility] 12/25 11:02 Order name: Comprehensive Metabolic Panel; Complete Time: 12:13 [facility] 12/25 11:02 Order name: Urinalysis w/ reflexes; Complete Time: 11:50 [facility] 12/25 10:25 Order name: Foot Right 3 View XRAY; Complete Time: 11:20 [facility] 12/25 10:25 Order name: Ankle Right 3 View XRAY; Complete Time: 11:20 [facility] 12/25 10:25 Order name: Ice pack; Complete Time: 10:26 [facility] 12/25 10:25 Order name: Walking boot; Complete Time: 10:26 pricilla Administered Medications: 10:30 Drug: Ibuprofen PO 600 mg PO once Route: PO; db 12:35 Follow up: Response: No adverse reaction db 10:30 Drug: [place] PO 10 mg-325 mg 1 tabs PO once Route: PO; db 12:35 Follow up: Response: No adverse reaction db 11:10 Drug: Norvasc PO 10 mg PO once Route: PO; db 12:35 Follow up: Response: No adverse reaction db Disposition Summary: 12/25/22 12:14 Discharge Ordered Notes: Location: Home pricilla Problem: new pricilla Symptoms: have improved pricilla Condition: Stable pricilla Diagnosis - Essential (primary) hypertension pricilla - Sprain of tibiofibular ligament of right ankle pricilla - Sprain of calcaneofibular ligament of right ankle pricilla - Abnormal findings on diagnostic imaging of other specified body structures - pricilla SCLEROTIC LESION DISTAL TIBIAL SUBCORTICAL REGION, NEEDS FOLLOW UP RADIOGRAPHS IN 3-6 MONTHS TO SHOW STABILITY - Polycystic kidney, adult type pricilla - Unspecified kidney failure pricilla - Alcohol use, unspecified pricilla - Tobacco abuse counseling pricilla - Tobacco use pricilla Followup: pricilla - With: Private Physician - When: 2 - 3 days - Reason: Recheck today's complaints, Re-evaluation by your physician Followup: pricilla - With: Maurilio Pizarro MD - When: 2 - 3 days - Reason: Recheck today's complaints, Re-evaluation by your physician Followup: pricilla - With: To Hou MD - When: 2 - 3 days - Reason: Recheck today's complaints, Continuance of care, Re-evaluation by your physician Discharge Instructions: - Discharge Summary Sheet pricilla - Hypertension, Adult pricilla - Steps to Quit Smoking pricilla - Health Risks of Smoking pricilla - Polycystic Kidney Disease, Adult pricilla - Hypertension, Adult, [id number] pricilla - How to Take Your Blood Pressure, [id number]-fv-Knim pricilla - Aspirin and Your Heart pricilla - Chronic Kidney Disease, Adult, Vaie-in-Yjyn pricilla - Managing Your Hypertension [facility] Forms: - Medication Reconciliation Form [facility] - Thank You Letter [facility] - Antibiotic Education pricilla - Prescription Opioid Use pricilla - Patient Portal Instructions [facility] - Leadership Thank You Letter [facility] Prescriptions: - acetaminophen-codeine 300-30 mg Oral tablet - take 2 tablet ORAL route every 6 hours; 20 tablet; Refills: 0, Product [facility] Selection Permitted - Norvasc 10 mg Oral Tablet - take 1 tablet ORAL route once daily; 30 tablet; Refills: 0, Product Selection pricilla Permitted Signatures: Dispatcher [employer] Wilver Garcia MD MD cha Calderon, Audri RN RN aa5 Latanya Szymanski RN RN db Corrections: (The following items were deleted from the chart) 10:37 10:36 PMHx: heart problem; aa5 aa5
[2022-12-25 13:01] VITALS: TEMP 98; O2SAT 100
[2022-12-25 13:03] VITALS: BP 163/107
== END 2022-12-25 12:37 | disposition home or self-care (01) ==
LOC: ER 10:11
DX: S93.431A Sprain of tibiofibular ligament of right ankle, initial encounter (principal); S93.411A Sprain of calcaneofibular ligament of right ankle, initial encounter; I10 Essential (primary) hypertension; R93.89 Abnormal findings on diagnostic imaging of other specified body structures; Q61.3 Polycystic kidney, unspecified; K72.90 Hepatic failure, unspecified without coma; F10.90 Alcohol use, unspecified, uncomplicated; Z72.0 Tobacco use; Z71.6 Tobacco abuse counseling
CPT/HCPCS: 36415; 80053; 81001; 85025; 99284

== ENCOUNTER 2024-02-16 22:41 | Emergency (ER) | payer OTHER, SELFPAY ==
--- OUTSIDE RECORDS SUMMARY | 2024-02-16 22:45 | XMS REPORT | Continuity of Care Document ---
Author Name Unknown Address [address] [place] [address] thconnect Address [address] [facility] [address] [place] [address] Care Team Providers Care Lead Application Architect Name Role Phone DARA PEACOCK Attending Clinician Unavailable ABDULAZIZ MERCER Attending Clinician UnavailLUZ MARIA Flowers Attending Clinician Unavailable Payers Payer Name Policy Type Policy Number Effective Date Expirati on Date Source [employer] MP [facility] [employer] PROFESSIONAL ADVISOR 94 ON 9 [id number] 2023 00:00:00 Social History Social Habit Start Date Stop Date Quantity Comments Source Sexual orientation Sergey Oscarold - External Sex 2023-05-28 21:23:09 2023-05-28 21:23:09 Male (finding) Erica Ibrahim - External Sex [birth year] at 1975 00:00:00 1975 00:00:00 Erica Sebalbirmartha - External Smoking Status Start Date Stop Date Source Tobacco smoking consumption unknown Erica Hernándezbalbirmartha - External Medications Ordered Medication Name Filled Medication Name Start Date Stop Date Current Medication? Ordering Clinician Indication Dosage Frequency Signature (SIG) Comments Components Source Naproxen (Naprosyn) 500 MG oral Tablet 2023-03 00:00: 00 Yes [id number] 500mg Take 1 tablet (500 mg total) by mouth in the morning and 1 tablet (500 mg total) in the evening. Take with meals. Erica Resendeza l Baclofen 10 MG oral Tablet 2023-03 00:00: 00 Yes [id number] 10mg [id number] 3D Take 1 tablet (10 mg total) by mouth 3 times daily. Erica bennett EPINEPHrine (EPIPEN) 0.15 MG/0.3ML injection Solution Auto-inject or 11-30 00:00: 00 Yes [id number] .15mg Inject 0.3 mL (0.15 mg total) as directed as needed for anaphylaxi s. Erica bennett methylPREDN ISolone 4 MG oral Tablet Therapy Pack 11-30 00:00: 00 01-11 00:00 :00 No [id number] 1{amalia} Take 1 amalia by mouth See Admin Instructio ns Use as directed. Erica bennett Triamcinolo ne Acetonide 0.1 % apply externally Cream 06-08 00:00: 00 Yes [id number] 1{appli cation} Q.5D Apply 1 Applicatio n topically 2 times daily On affected areas.. Erica bennett methylPREDN ISolone 4 MG oral Tablet Therapy Pack 06-08 00:00: 00 11-30 00:00 :00 No [id number] 1{amalia} Take 1 amalia by mouth See Admin Instructio ns Use as directed. Erica bennett Encounters Start Date/Time End Date/Time Encounter Type Admission Type Attending [facility] Facility Care Department Encounter ID Source 2024-01-12 12:00:00 2024-01-12 12:00:00 Outpatient DARA PEACOCK [id number] Erica Ibrahim 2023-12-01 11:30:00 2023-12-01 11:30:00 Outpatient ABDULAZIZ MERCER [id number] Erica Ibrahim 2023-06-09 10:30:00 2023-06-09 10:30:00 Outpatient LUZ MARIA SCHAEFFER [id number] Erica Ibrahim
[2024-02-16] MEDS ORDERED: MORPHINE 4 MG/ML SYR ONE (22:50)
[2024-02-16] MEDS ORDERED: NA CHLORIDE 0.9% 1,000 ML ONE (22:50)
[2024-02-16] MEDS ORDERED: ONDANSETRON 4 MG/2 ML VIAL ONE (22:50)
[2024-02-16 23:34] LABS: Absolute Eosinophils 0.1 K/uL (0-0.5); Absolute Lymphocytes (CBC) 0.7 K/uL (0.7-4.9); Absolute Monocytes 0.4 K/uL (0.1-1.3); Absolute Neutrophil 5.7 K/uL (1.8-8.0); Basophils % 0.4 % (0-1.3); Eosinophils % 0.9 % (0-4.4); Hematocrit 47.6 % (39.6-49.0); Hemoglobin 16.3 g/dL (13.6-17.9); Lymphocytes % 10.6 % (15.3-44.8); MCH 31.5 pg (27.0-35.0); MCHC 34.3 g/dL (32.0-36.0); MCV 91.9 fL (80-100); MPV 10.1 fL (7.6-11.3); Monocytes % 6.3 % (3.3-12.3); Neutrophils % 81.8 % (41.7-73.7); Platelets 157 thou/uL (152-406); RBC Red Blood Cell Count 5.17 M/uL (4.33-5.43); Red Cell Distribution Width 13.2 % (12.1-15.2)
[2024-02-16 23:47] LABS: AST/SGOT 15 U/L (15-37); Albumin/Globulin Ratio 0.9 (1.1-1.8); Alkaline Phosphatase 54 U/L (45-117); Anion Gap 9.4 mEq/L (5.0-15.0); BUN Blood Urea Nitrogen 12 mg/dL (7-18); Bicarbonate 21 mEq/L (21-32); Bilirubin Total 0.8 mg/dL (0.2-1.0); Globulin 3.2 g/dL (2.3-3.5); Glomerular Filtration Rate 51 ml/min (=/>90); Glucose Level 107 mg/dL (74-106); Lipase 26 U/L (13-75); Potassium 3.4 mEq/L (3.5-5.1); Protein, Total 6.2 g/dL (6.4-8.2); Sodium Level 135 mEq/L (136-145)
[2024-02-16 23:54] LABS: ALT/SGPT < 14 U/L (16-61)
--- NOTE | 2024-02-17 00:22 | RAD REPORT ---
EXAM: CT Abdomen and Pelvis Without Intravenous Contrast CLINICAL HISTORY: The patient is 48 years old and is Male; flank TECHNIQUE: Axial computed tomography images of the abdomen and pelvis without intravenous contrast. Sagittal and coronal reformatted images were created and reviewed. This CT exam was performed using one or more of the following dose reduction techniques: automated exposure control, adjustment of the m A and/or kV according to patient size, and/or use of iterative reconstruction technique. COMPARISON: CT October 29, 2021 FINDINGS: LUNG BASES: Unremarkable. No mass. No consolidation. ABDOMEN: LIVER: Innumerable cysts are present throughout the liver. GALLBLADDER AND BILE DUCTS: No calcified stones. No ductal dilation. PANCREAS: Unremarkable. No ductal dilation. SPLEEN: Unremarkable. ADRENALS: Unremarkable. No mass. KIDNEYS AND URETERS: The kidneys are enlarged and near completely replaced with innumerable bilat eral renal cysts. Scattered septal calcifications are present. A few hyperdense renal cyst are noted. There is no perinephric or periureteral stranding. No hydronephrosis or hydroureter. STOMACH AND BOWEL: Stomach is decompressed. The small bowel is fluid-filled and relatively normal in caliber. A moderate amount of stool is present throughout the colon. There is no mucosal thickening or evidence of obstruction. Scattered colonic diverticula are present without surrounding inflammation. PELVIS: APPENDIX: No findings to suggest acute appendicitis. BLADDER: The bladder is moderately distended. No stones. REPRODUCTIVE: Unremarkable as visualized. ABDOMEN and PELVIS: INTRAPERITONEAL SPACE: Unremarkable. No free air. No significant fluid collection. BONES/JOINTS: No acute fracture. SOFT TISSUES: The soft tissues are normal. VASCULATURE: Atherosclerosis of the vasculature is present. The vessels are normal in caliber. No abdominal aortic aneurysm. LYMPH NODES: Unremarkable. No enlarged lymph nodes. IMPRESSION: 1. Findings consistent with polycystic kidney. 2. Multiple cysts within the liver. 3. No bowel obstruction. Moderate stool burden. Electronically signed by: Cynthia Ferro MD 02/17/2024 12:16 AM [facility] Due to temporary technical issues with the [email or web address] reporting system, reports are being destiny d by the in-house radiologist without review as a courtesy to ensure prompt reporting the interpreting radiologist is fully responsible for the content of the report. Transcribed Date/Time: 02/17/2024 12:21 AM
[2024-02-17 02:09] LABS: Specific Gravity 1.006 (1.005-1.030); Sqamous Epithelial None Seen /HPF (None Seen); Urine Bacteria None Seen /HPF (<20); Urine Bilirubin NEGATIVE (Negative); Urine Blood Trace (Negative); Urine Clarity Clear (Clear); Urine Color Colorless (Yellow); Urine Culture Reflex Order NOT NEEDED; Urine Glucose NEGATIVE (Negative); Urine Ketones NEGATIVE (Negative); Urine Microscopic Reflex YN ORDER UMIC; Urine Nitrite NEGATIVE (Negative); Urine Protein 2+ (Negative); Urine RBC <5 /HPF (None Seen); Urine Urobilinogen Normal (Normal); Urine WBC <5 /HPF (<5); Urine pH 6.5 (5.0-7.0)
--- NOTE | 2024-02-17 02:19 | ER ---
Nurse's Notes [facility] Name: Wilver Barton Age: 48 yrs Sex: Male : 1975 Arrival Date: 02/16/2024 Time: 22:41 Bed 4 Private MD: Diagnosis: Polycystic kidney, unspecified Presentation: 02/15 22:43 Chief complaint: EMS states: abdominal pain that started at 1330 today. Reports nausea cp4 and vomiting. Coronavirus screen: Client denies travel out of the [place] in the last 14 days. At this time, the client does not indicate any symptoms associated with coronavirus-19. Ebola Screen: Patient negative for fever greater than or equal to 101.5 degrees Fahrenheit, and additional compatible Ebola Virus Disease symptoms Patient denies exposure to infectious person. Patient denies travel to an Ebola-affected area in the 21 days before illness onset. No symptoms or risks identified at this time. Initial Sepsis Screen: Does the patient meet any 2 criteria? No. Patient's initial sepsis screen is negative. Does the patient have a suspected source of infection? No. Patient's initial sepsis screen is negative. Risk Assessment: Do you want to hurt yourself or someone else? Patient reports no desire to harm self or others. Onset of symptoms was February 16, 2024 at 13:30. 22:43 Method Of Arrival: EMS: [facility] 4 22:43 Acuity: JEFERSON 3 cp4 Triage Assessment: 22:46 General: Appears in no apparent distress. uncomfortable, Behavior is calm, cooperative, cp4 appropriate for age. Pain: Complains of pain in abdomen Pain radiates to back Pain currently is 10 out of 10 on a pain scale. EENT: No signs and/or symptoms were reported regarding the EENT system. Neuro: Level of Consciousness is awake, alert, obeys commands, Oriented to person, place, time, situation. Cardiovascular: Patient's skin is warm and dry. Respiratory: Airway is patent Respiratory effort is even, unlabored. GI: Abdomen is round non-distended, Bowel sounds present X 4 quads. Abdomen is tender to palpation X 4 quads. Reports nausea, vomiting. : No signs and/or symptoms were reported regarding the genitourinary system. Derm: No signs and/or symptoms reported regarding the dermatologic system. Musculoskeletal: No signs and/or symptoms reported regarding the musculoskeletal system. Historical: - Allergies: 22:46 PENICILLINS; cp4 - PMHx: 22:46 alcohol abuse (cyst removal from e); Hypertension; POLYCYSTIC KIDNEY DISEASE; cp4 - PSHx: 22:46 cyst removal from ear; cp4 - Immunization history:: Adult Immunizations up to date. - Infectious Disease History:: Denies. - Social history:: Smoking status: Patient denies any tobacco usage or history of. - Family history:: not pertinent. Screenin:48 [facility] ED Fall Risk Assessment (Adult) History of falling in the last 3 months, cp4 including since admission No falls in past 3 months (0 pts) Confusion or Disorientation No (0 pts) Intoxicated or Sedated No (0 pts) Impaired Gait No (0 pts) Mobility Assist Device Used No (0 pt) Altered Elimination No (0 pt) Score/Fall Risk Level 0 - 2 = Low Risk Oriented to surroundings, Maintained a safe environment, Assessed \T\ reinforced patient's understanding of fall precautions, Hourly rounding (assess needs \T\ fall precautionary measures) done. Abuse screen: Denies threats or abuse. Nutritional screening: No deficits noted. Tuberculosis screening: No symptoms or risk factors identified. Assessment: 22:48 Reassessment: No changes from previously documented assessment. cp4 Vital Signs: 22:43 BP 151 / 104; Pulse 68; Resp 18; Temp 99.6; Pulse Ox 100% ; Weight 65.77 kg; Height 6 cp4 ft. 0 in. ; Pain 10/10; 02/16 01:34 BP 152 / 105; Pulse 64; Resp 18; Pulse Ox 100% ; cp4 02:58 BP 143 / 100; Pulse 64; Resp 18; Pulse Ox 97% ; cp4 02/15 22:43 Body Mass Index 19.67 (65.77 kg, 182.88 cm) cp4 02/15 22:43 Pain Scale: Adult cp4 ED Course: 02/15 22:43 Patient arrived in ED. jj6 22:43 Bernice Baker is Primary Nurse. cp4 22:44 Albert Lipscomb MD is Attending Physician. rt 22:46 Triage completed. cp4 22:46 Arm band placed on right wrist. Patient placed in an exam room, on a stretcher. cp4 22:48 Bed in low position. Call light in reach. Side rails up X 1. cp4 22:48 No provider procedures requiring assistance completed. cp4 23:03 CT Abd/Pelvis - Without Contrast In Process Unspecified. EDMS 02/16 02:59 Provided Education on: polycystic kidney disease. cp4 02:59 intact, bleeding controlled, No redness/swelling at site. Pressure dressing applied. cp4 Administered Medications: 02/15 23:10 Drug: Ondansetron IVP 4 mg IVP once; over 2 minutes Route: IVP; Site: right forearm; mt4 23:10 Drug: morphine IVP or IV 4 mg IVP once over 4 mins Route: IVP; Infused Over: 4 mins; mt4 Site: right forearm; 23:10 Drug: NS 0.9% IV 1000 ml IV at 1 bolus Per protocol; to be given as a bolus over 60 mt4 minutes Route: IV; Rate: 1 bolus; Site: right forearm; 02/16 02:36 Drug: morphine IVP or IV 4 mg IVP once over 4 mins Route: IVP; Infused Over: 4 mins; cp4 Site: right forearm; 02:57 Follow up: Response: No adverse reaction; Pain is decreased cp4 02:36 Drug: metoCLOPramide IVP 10 mg IVP once; over 1 to 2 minutes Route: IVP; Site: right cp4 forearm; 02:57 Follow up: Response: No adverse reaction cp4 02:36 Drug: diphenhydrAMINE IVP 25 mg IVP once Route: IVP; Site: right forearm; cp4 02:55 Follow up: Response: No adverse reaction cp4 Medication: 02/15 22:48 VIS not applicable for this client. cp4 Outcome: 02/16 02:18 Discharge ordered by . rt 02:59 Discharged to home ambulatory, cp4 02:59 Condition: stable 02:59 Discharge instructions given to patient, Instructed on discharge instructions, follow up and referral plans. medication usage, Demonstrated understanding of instructions, follow-up care, medications, Prescriptions given X 1, 03:01 Patient left the ED. cp4 Signatures: Dispatcher [employer] EDMS Valeria Metz [id number] Albert Lipscomb MD MD rt Potter, Christina cp4 Juvencio Baldwin, RN RN mt4
--- NOTE | 2024-02-17 02:19 | EDPHYS ---
Physician Documentation [facility] Name: Wilver Barton Age: 48 yrs Sex: Male : 1975 Arrival Date: 02/16/2024 Time: 22:41 Bed 4 Private MD: ED Physician Albert Lipscomb HPI: 02/15 23:01 This 48 yrs old Male presents to ER via EMS with complaints of Abdominal Pain. rt 23:01 Patient with history of polycystic kidney disease presents to the ED with a bilateral rt flank pain, worse on the left compared to the right starting at about 1 PM. Has nausea that vomiting. Reports a pinkish discoloration to the urine. Denies other acute complaints at this time, symptoms are moderate severity, no other aggravating elevating factors.. Historical: - Allergies: 22:46 PENICILLINS; cp4 - PMHx: 22:46 alcohol abuse (cyst removal from e); Hypertension; POLYCYSTIC KIDNEY DISEASE; cp4 - PSHx: 22:46 cyst removal from ear; cp4 - Immunization history:: Adult Immunizations up to date. - Infectious Disease History:: Denies. - Social history:: Smoking status: Patient denies any tobacco usage or history of. - Family history:: not pertinent. ROS: 23:01 Constitutional: Negative for fever, chills, and weight loss, Cardiovascular: Negative rt for chest pain, palpitations, and edema, Respiratory: Negative for shortness of breath, cough, wheezing, and pleuritic chest pain, Abdomen/GI: Negative for abdominal pain, nausea, vomiting, diarrhea, and constipation, MS/Extremity: Negative for injury and deformity, Skin: Negative for injury, rash, and discoloration, Neuro: Negative for headache, weakness, numbness, tingling, and seizure, 23:01 Back: Positive for flank pain, Negative for injury or acute deformity, Exam: 23:01 Constitutional: This is a well developed, well nourished patient who is awake, alert, rt and in no acute distress. Head/Face: Normocephalic, atraumatic. Chest/axilla: Normal chest wall appearance and motion. Nontender with no deformity. No lesions are appreciated. Cardiovascular: Regular rate and rhythm with a normal S1 and S2. No gallops, murmurs, or rubs. Normal PMI, no JVD. No pulse deficits. Respiratory: Lungs have equal breath sounds bilaterally, clear to auscultation and percussion. No rales, rhonchi or wheezes noted. No increased work of breathing, no retractions or nasal flaring. Abdomen/GI: Soft, non-tender, with normal bowel sounds. No distension or tympany. No guarding or rebound. No evidence of tenderness throughout. MS/ Extremity: Pulses equal, no cyanosis. Neurovascular intact. Full, normal range of motion. Neuro: Awake and alert, GCS 15, oriented to person, place, time, and situation. Cranial nerves II-XII grossly intact. Motor strength 5/5 in all extremities. Sensory grossly intact. Cerebellar exam normal. Normal gait. Vital Signs: 22:43 BP 151 / 104; Pulse 68; Resp 18; Temp 99.6; Pulse Ox 100% ; Weight 65.77 kg; Height 6 cp4 ft. 0 in. ; Pain 12/31; 02/16 01:34 BP 152 / 105; Pulse 64; Resp 18; Pulse Ox 100% ; cp4 02:58 BP 143 / 100; Pulse 64; Resp 18; Pulse Ox 97% ; cp4 02/15 22:43 Body Mass Index 19.67 (65.77 kg, 182.88 cm) cp4 02/15 22:43 Pain Scale: Adult cp4 MDM: 02/15 22:44 Medical Screening Exam initiated rt 02/16 03:21 Differential Diagnosis Kidney stone, UTI, polycystic kidney disease. Data reviewed: rt vital signs, nurses notes, lab test result(s), radiologic studies. Consideration of Admission/Observation Escalation of care including admission/observation considered. CT scan shows pre-existing hepatic cyst, renal cysts. Creatinine is at baseline. No signs of UTI. No indications for admission at this time.. Independent interpretation of the following test(s) in the Emergency Department CT Scan: My interpretation is Hepatic and renal cyst seen on interpretation of CT scan images. Care significantly affected by the following chronic conditions: Polycystic kidney disease. Counseling: I had a detailed discussion with the patient and/or guardian regarding the historical points, exam findings, and any diagnostic results supporting the discharge/admit diagnosis, lab results, radiology results, the need for outpatient follow up, to return to the emergency department if symptoms worsen or persist or if there are any questions or concerns that arise at home. Response to treatment: the patient's symptoms have mildly improved after treatment. 02/15 22:45 Order name: CBC with Diff; Complete Time: 00:07 rt 02/15 22:45 Order name: CMP; Complete Time: 00:07 rt 02/15 22:45 Order name: Lipase; Complete Time: 00:07 rt 02/15 22:45 Order name: Urinalysis w/ reflexes; Complete Time: 02:11 rt 02/15 22:45 Order name: CT Abd/Pelvis - Without Contrast rt 02/15 22:45 Order name: IV Saline Lock; Complete Time: 23:01 rt 02/15 22:45 Order name: Labs collected and sent; Complete Time: 23:01 rt Administered Medications: 02/15 23:10 Drug: Ondansetron IVP 4 mg IVP once; over 2 minutes Route: IVP; Site: right forearm; mt4 23:10 Drug: morphine IVP or IV 4 mg IVP once over 4 mins Route: IVP; Infused Over: 4 mins; mt4 Site: right forearm; 23:10 Drug: NS 0.9% IV 1000 ml IV at 1 bolus Per protocol; to be given as a bolus over 60 mt4 minutes Route: IV; Rate: 1 bolus; Site: right forearm; 02/16 02:36 Drug: morphine IVP or IV 4 mg IVP once over 4 mins Route: IVP; Infused Over: 4 mins; cp4 Site: right forearm; 02:57 Follow up: Response: No adverse reaction; Pain is decreased cp4 02:36 Drug: metoCLOPramide IVP 10 mg IVP once; over 1 to 2 minutes Route: IVP; Site: right cp4 forearm; 02:57 Follow up: Response: No adverse reaction cp4 02:36 Drug: diphenhydrAMINE IVP 25 mg IVP once Route: IVP; Site: right forearm; cp4 02:55 Follow up: Response: No adverse reaction cp4 Disposition Summary: 02/17/24 02:18 Discharge Ordered Notes: Location: Home rt Problem: new rt Symptoms: have improved rt Condition: Stable rt Diagnosis - Polycystic kidney, unspecified rt Followup: rt - With: Private Physician - When: 2 - 3 days - Reason: Discharge Instructions: - Discharge Summary Sheet rt - Polycystic Kidney Disease, Adult rt Forms: - Medication Reconciliation Form rt - Antibiotic Education rt - Prescription Opioid Use rt - Patient Portal Instructions rt - Leadership Thank You Letter rt Prescriptions: - Tramadol 50 mg Oral Tablet - take 1 tablet ORAL route every 8 hours as needed; 12 tablet; Refills: 0, rt Product Selection Permitted Signatures: Dispatcher [employer] Albert Parsons MD MD rt Bernice Baker cp4 Juvencio Baldwin RN RN mt4
[2024-02-17] MEDS ORDERED: METOCLOPRAMIDE 10 MG/2mL INJ ONE (02:31)
[2024-02-17] MEDS ORDERED: DIPHENHYDRAMINE 50 MG/ML VIAL ONE (02:31)
[2024-02-17] MEDS ORDERED: MORPHINE 4 MG/ML SYR ONE (02:31)
[2024-02-17 10:25] VITALS: TEMP 99.6
[2024-02-17 10:28] VITALS: BP 143/100; O2SAT 97
== END 2024-02-17 03:01 | disposition home or self-care (01) ==
LOC: ER 22:41
DX: Q61.3 Polycystic kidney, unspecified (principal)
CPT/HCPCS: 36415; 74176; 80053; 81001; 83690; 85025; 96374; 96375; 99284; J1200; J2405; J2765; J7030